=== PATIENT | male | born 1960 | race Caucasian/White ===

== ENCOUNTER 2023-02-09 01:04 | Day surgery (SDC) | payer BC, SELFPAY ==
[2023-02-05 09:52] VITALS: BMI 32.3
--- NOTE | 2023-02-08 12:58 | WPDANESEPPF ---
Anes - Initial Pre Proc Eval Procedure: Operation Date: 02/09/23 13:45 Proposed Procedures p Colonoscopy - Giovanni Wynn MD Date/Time: 02/08/23 12:58 Surgeon: Giovanni Wynn MD Pre Op Diagnosis: positive cologuard Patient Data Age: 63 Gender: M Height: 1.78 m Weight: 102.2 kg Allergies Allergy/AdvReac Type Severity Reaction Status Date / Time No Known Allergies Allergy Unverified 02/09/23 13:00 Home Medications Medication Instructions Recorded Confirmed Type diclofenac sodium 50 mg 50 mg PO BID 02/05/23 02/09/23 History tablet,delayed release gabapentin 300 mg capsule 300 mg PO BID 02/05/23 02/09/23 History hydrocodone 5 mg-acetaminophen 325 1 tablet PO PRN PRN Pain 02/05/23 02/09/23 History mg tablet ropinirole 3 mg tablet 3 mg PO TID 02/05/23 02/09/23 History semaglutide 2 mg/dose (8 mg/3 mL) 2 mg subcut WEEKLY 02/05/23 02/09/23 History subcutaneous pen injector (Ozempic) tamsulosin 0.4 mg capsule 0.4 mg PO DAILY 02/05/23 02/09/23 History tizanidine 4 mg tablet 4 mg PO DAILY 02/05/23 02/09/23 History Patient hx anesthesia problems: none Family hx anesthesia problems: none Results Review: All pre-operative results and documents have been reviewed as part of the pre-operative evaluation. [facility] Past Medical History Medical History (Updated 02/08/23 @ 13:00 by Rohan Ruth DO) Chronic, continuous use of opioids Diabetes type 2, controlled RENUKA (obstructive sleep apnea) CPAP RLS (restless legs syndrome) Social History Social History Smoking packs per day: 1 Smoking cigarettes per day: 20.0 Years smoked: 42 Smoking pack-years: 42.00 Smoking status: Current every day smoker Tobacco type: cigarettes Alcohol intake: never Substance use: never Substance use type: opiates Other substance usage details: norco-5/325 1-2 times daily for back pain Living arrangements: with roommate(s) Additional living arrangements comments: significant other [place] Spiritual care concerns: No Anes - Eval Final PreProcedure Day of Procedure 06/22/23 12:58 Patient weight: obese Heart: regular rate and rhythm Lungs: clear to auscultation Airway: Mallampati scale class II Neurological: alert and oriented Last oral intake: >/= 8 hours ASA classification: III Emergent: no Anesthetic plan: proceed Anesthesia type and monitoring: general GIVS and standard monitoring Results Review: All pre-operative results and documents have been reviewed as part of the pre-operative evaluation. Informed Consent: The patient's anesthetic plan and its attendant risks and benefits were discussed with the patient/family/POA. Questions were solicited and answers provided to the satisfaction of the patient/family/POA.
[2023-02-09 13:01] LABS: Glucose Point of Care 86 mg/dl (65-105)
[2023-02-09 13:03] VITALS: BP 156/71; PULSE 86; RESP 18; TEMP 36.2; O2SAT 98
[2023-02-09] MEDS: LACTATED RINGERS 1,000 ML 150 ML IV CONT (13:05)
--- NOTE | 2023-02-09 13:48 | PM.HPGS ---
History of Present Illness History of Present Illness Consent: Risks, benefits, and alternatives have been discussed and questions answered. Patient agrees to proceed with procedure. Chief complaint: positive cologuard Narrative: Kashmir Marie is a 63 year old male Presents for screening colonoscopy. Patient's current weight appetite and bowel movements are normal. Patient denies abdominal pain. He has had no bleeding. Recent Cologuard test was positive. Patient reports that his sister was found to have colon cancer. Review of Systems Review of Systems: Review of systems noncontributory. [facility] Past Medical History Medical History (Updated 02/09/23 @ 13:49 by Giovanni Wynn MD) Chronic, continuous use of opioids Diabetes type 2, controlled RENUKA (obstructive sleep apnea) CPAP RLS (restless legs syndrome) Social History Social History Smoking packs per day: 1 Smoking cigarettes per day: 20.0 Years smoked: 42 Smoking pack-years: 42.00 Smoking status: Current every day smoker Tobacco type: cigarettes Alcohol intake: never Substance use: never Substance use type: opiates Other substance usage details: norco-5/325 1-2 times daily for back pain Living arrangements: with roommate(s) Additional living arrangements comments: significant other [place] Spiritual care concerns: No Meds Home Medications and Allergies Home Medications Medication Instructions Recorded Confirmed Type diclofenac sodium 50 mg 50 mg PO BID 02/05/23 02/09/23 History tablet,delayed release gabapentin 300 mg capsule 300 mg PO BID 02/05/23 02/09/23 History hydrocodone 5 mg-acetaminophen 325 1 tablet PO PRN PRN Pain 02/05/23 02/09/23 History mg tablet ropinirole 3 mg tablet 3 mg PO TID 02/05/23 02/09/23 History semaglutide 2 mg/dose (8 mg/3 mL) 2 mg subcut WEEKLY 02/05/23 02/09/23 History subcutaneous pen injector (Ozempic) tamsulosin 0.4 mg capsule 0.4 mg PO DAILY 02/05/23 02/09/23 History tizanidine 4 mg tablet 4 mg PO DAILY 02/05/23 02/09/23 History Allergies Allergy/AdvReac Type Severity Reaction Status Date / Time No Known Allergies Allergy Unverified 02/09/23 13:00 Vital Signs Vital Signs - 24 hr 02/09/23 13:03 Temperature 97.1 F L Pulse Rate 86 Respiratory Rate 18 Blood Pressure 156/71 H Pulse Oximetry 98 Oxygen Delivery Room Air Exam Narrative: Physical exam reveals patient to be alert. Vital signs stable. HEENT exam is unremarkable. Patient is anicteric. Lungs are clear to auscultation and percussion. Heart is without murmur or extra sounds. Abdomen bowel sounds are present soft nontender with no organomegaly. Digital external rectal exam normal. Assessment and Plan Assessment and plan (1) Positive colorectal cancer screening using Cologuard test: Code(s): R19.5 - Other fecal abnormalities Status: Acute Assessment and Plan: Patient presents today for colonoscopy because of positive Cologuard test. (2) Family hx of colon cancer: Code(s): Z80.0 - Family history of malignant neoplasm of digestive organs Status: Acute Assessment and Plan: Patient's sister is reported to have colon cancer. Consider follow-up colonoscopy at 5 year intervals.
[2023-02-09 14:21] VITALS: BP 140/67; PULSE 82; RESP 34; O2SAT 98
--- NOTE | 2023-02-09 14:24 | SUR.OPER ---
Sigmoid polyps x2 removed per hot snare. Only one polyp retrievable.
[2023-02-09 14:31] VITALS: BP 133/68; PULSE 75; RESP 24; O2SAT 99
[2023-02-09 14:41] VITALS: BP 144/80; PULSE 74; RESP 20; O2SAT 99
== END 2023-02-09 15:01 | disposition home or self-care (01) ==
PROVIDERS: PCP Emergency Medicine; Visit Provider Internal Medicine Gastroenterology
PROC: 0DJD8ZZ Inspection of Lower Intestinal Tract, Via Natural or Artificial Opening Endoscopic (ICD-10-PCS; CPT 45378; principal; 2023-02-09 13:45)
DX: R19.5 Other fecal abnormalities (principal); Z80.0 Family history of malignant neoplasm of digestive organs; D12.5 Benign neoplasm of sigmoid colon; E11.9 Type 2 diabetes mellitus without complications; G47.33 Obstructive sleep apnea (adult) (pediatric); F17.210 Nicotine dependence, cigarettes, uncomplicated
CPT/HCPCS: 45385; 82948; 88305; J2704; J7120

== ENCOUNTER 2023-09-06 22:21 | Emergency (ER) | payer OTHER, BC, SELFPAY ==
--- NOTE | ~2023-09-06 | XR_ITS ---
EXAMINATION: XR finger 4th LT min 2V INDICATION: Left fourth finger pain TECHNIQUE: Three views of the left fourth finger are obtained. COMPARISON: None available FINDINGS: Bone alignment is normal. There is no fracture. There is a laceration involving the distal tuft of the fourth finger. The joint spaces are unremarkable. IMPRESSION: 1. No acute osseous abnormality. Reviewed, dictated and finalized at location [facility]
[2023-09-06 22:23] VITALS: BP 167/77; PULSE 92; RESP 16; TEMP 36.5; O2SAT 100
--- NOTE | 2023-09-06 22:37 | PC.NURSE ---
Finger cleansed with wound grave cleaner and sterile saline. Wrapped with telfa, gauze and coban in triage.
[2023-09-07 03:31] VITALS: BP 150/78; PULSE 66; RESP 16; O2SAT 99
--- NOTE | 2023-09-07 04:26 | ED.UPPEXIN ---
HPI - Extremity Injury (Upper) General Chief Complaint: Extremity Injury, Upper Stated Complaint: L finger injury Time Seen by Provider: 09/07/23 03:24 Source: patient Limitations: no limitations History of Present Illness HPI narrative: Patient is a 63-year-old male presents to the emergency department complaining of a left ring finger injury that occurred around 8:00 p.m. last night while at work using a metal machine. Patient states he is right-handed. Patient denies any significant pain the patient is to mild blood loss. Patient denies any history of injury to this region in the past. Patient denies numbness, weakness, fever. Patient tried Excedrin for the discomfort. Patient does not know when his last tetanus shot was. Related Data Home Medications Medication Instructions Recorded Confirmed diclofenac sodium 50 mg 50 mg PO BID 02/05/23 02/09/23 tablet,delayed release gabapentin 300 mg capsule 300 mg PO BID 02/05/23 02/09/23 hydrocodone 5 mg-acetaminophen 325 1 tablet PO PRN PRN Pain 02/05/23 02/09/23 mg tablet ropinirole 3 mg tablet 3 mg PO TID 02/05/23 02/09/23 semaglutide 2 mg/dose (8 mg/3 mL) 2 mg subcut WEEKLY 02/05/23 02/09/23 subcutaneous pen injector (Ozempic) tamsulosin 0.4 mg capsule 0.4 mg PO DAILY 02/05/23 02/09/23 tizanidine 4 mg tablet 4 mg PO DAILY 02/05/23 02/09/23 Allergies Allergy/AdvReac Type Severity Reaction Status Date / Time No Known Allergies Allergy Unverified 02/09/23 13:00 Review of Systems Review of Systems: A 10 system review of systems was completed on the patient and is negative except for what is stated in the HPI. Nursing and ancillary documentation was reviewed. [facility] Past Medical History Medical History (Updated 09/07/23 @ 04:31 by Chaz Thayer DO) Chronic, continuous use of opioids Diabetes type 2, controlled RENUKA (obstructive sleep apnea) CPAP RLS (restless legs syndrome) Social History Social History Smoking packs per day: 1 Smoking cigarettes per day: 20.0 Years smoked: 42 Smoking pack-years: 42.00 Smoking status: Current every day smoker Tobacco type: cigarettes Alcohol intake: never Substance use: never Substance use type: opiates Other substance usage details: norco-5/325 1-2 times daily for back pain Living arrangements: with roommate(s) Additional living arrangements comments: significant other [place] Spiritual care concerns: No Comments At time of signature, I have reviewed and agree with nursing past medical, surgical, social and family history unless otherwise noted. Please see the nursing chart for further information. There is no relevant family history pertinent to the presenting complaint. Exam Narrative: CONST: No acute distress. Well nourished. HENMT: Head is normocephalic and atraumatic. Moist mucous membranes. EYES: No conjunctival icterus, injection, or pallor. CARDIO: 2+ radial pulses bilaterally. SKIN: No rashes. Skin avulsion present over the left distal ring finger medial to the nail, no nail involvement, hemostatic, no foreign bodies, no significant gaping laceration, no surrounding signs of infection, no bony tenderness to palpation, range of motion of the fingers intact in both active flexion and extension, compartments are soft. NEURO: Oriented x3. Moves all extremities. EXTREM/MSK/BACK: No pedal edema. PSYCH: Normal affect. Course Vital Signs Vital signs: Vital Signs Temperature 97.7 F 09/06/23 22:23 Pulse Rate 92 09/06/23 22:23 Respiratory Rate 16 09/06/23 22:23 Blood Pressure 167/77 H 09/06/23 22:23 Pulse Oximetry 100 09/06/23 22:23 Oxygen Delivery Room Air 09/06/23 22:23 Temperature 97.7 F 09/06/23 22:23 Pulse Rate 66 09/07/23 03:31 Respiratory Rate 16 09/07/23 03:31 Blood Pressure 150/78 H 09/07/23 03:31 Pulse Oximetry 99 09/07/23 03:31 Oxygen Delivery Room Air 09/06/23 22:23 MDM - Extremity Injury (Upper) MDM Na
[2023-09-07] MEDS: CLINDAMYCIN HCL 150 MG CAP 450 MG PO (04:34)
== END 2023-09-07 04:51 | disposition home or self-care (01) ==
PROVIDERS: Emergency Provider Student in an Organized Health Care Education/Training Program; PCP Emergency Medicine
DX: S61.215A Laceration without foreign body of left ring finger without damage to nail, initial encounter (principal); E11.9 Type 2 diabetes mellitus without complications; G25.81 Restless legs syndrome; G47.33 Obstructive sleep apnea (adult) (pediatric); F17.210 Nicotine dependence, cigarettes, uncomplicated; Z79.85 Long-term (current) use of injectable non-insulin antidiabetic drugs; W31.89XA Contact with other specified machinery, initial encounter
CPT/HCPCS: 73140; 99283; A9270